=== PATIENT | female | born 1990 | race Two or more races ===

== ENCOUNTER 2018-12-24 06:26 | Emergency (ER) | payer MEDICAID ==
[~2018-12-24] VITALS: Ht 162.6 cm; Wt 70.3 kg
[2018-12-24 06:30] VITALS: BP 115/81
== END 2018-12-24 06:58 | disposition home or self-care (01) ==
LOC: ER 06:33
DX: H61.22 Impacted cerumen, left ear (principal); Z98.890 Other specified postprocedural states